=== PATIENT | female | born 2005 ===

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

== ENCOUNTER 2025-04-09 10:11 | Outpatient (REF) | payer MEDICAID, SELFPAY ==
--- OUTSIDE RECORDS SUMMARY | 2025-04-09 10:33 | XMS_ITS | Encounter Summary ---
Author Organization [employer] Address [address] [place] [address] Care Team Providers Care First Aid Instructor Name Role Phone Aleyda Herron MD Primary Care Provider [phone] Reason for Visit * Reason Comments Anxiety Encounter Details Date Type Department Care Team ([facility] st Contact Info) Description 04/09/2025 9:40 AM EDT Office Visit [facility] [address] [place] [address] Aleyda Herron MD [address] [place] [address] CELIA (generalized anxiety disorder) (Primary Dx); Dietary counseling; Exercise counseling; Overweight; Fatigue, unspecified type; Routine screening for STI (sexually transmitted infection) Social History Tobacco Use Types Packs/Day Years Used Date Smoking Tobacco: Never Passive Smoke Exposure: Never Smokeless Tobacco: Never Alcohol Use Standard Drinks/Week Comments Never 0 (1 standard drink = 0.6 oz pur e alcohol) Depression Answer Date Recorded Patient Health Questionnaire-9 Score 6 04/09/2025 Patient Health Questionnaire-9 Score 6 04/09/2025 Last PHQ-9: Questionnaire Data Not on file 0 04/09/2025 Housing Stability Answer Date Recorded What is your housing situation today? I have janusz lopez 09/25/[address] you li ve. Do you have problems with any of the following? Lead [place] or [place]ipes;Mold 09/25/2024 Food Insecurity Answer Date Recorded Within the past 12 months, y ou worried that your food would run out before you got money to buy more: Never True 09/25/2024 Within the past 12 months,th e food you bought just didn't last and you didn't have enough money to get more: Never True 11/2023 Transportation Answer Date Recorded In the past 12 months, has l ack of transportation kept you from medical appts, meetings, work or from getting things needed for daily living? No 09/25/2024 Utilities Answer Date Recorded In the past 12 months, has t he electric, gas, oil or water company threatened to shut off services in your home? No 09/25/2024 Depression Answer Date Recorded Patient Health Questionnaire-2 Score 0 04/09/2025 Internet Access Answer Date Recorded Internet Access Q1 Yes 09/25/2024 Internet Access Q2 Not on file 09/25/2024 Comments No Sex and Gender Information Value Date Recorded Sex Assigned at Female 09/24/2022 10:29 AM EDT Legal Sex Female 10:29 AM EDT Gender Identity Female 09/24/2022 10:29 AM EDT Sexual Orientation Straight 09/24/2022 10 :29 AM EDT documented as of this encounter Last Filed Vital Signs Vital Sign Reading Time Taken Comments Blood Pressure 130/84 04/09/2025 9:13 AM EDT Pulse 74 04/09/2025 9:13 AM EDT Temperature 36.7 ??C (98 ??F) 04/09/2025 9:13 AM EDT Respiratory Rate 18 04/09/2025 9:13 AM EDT Oxygen Saturation - - Inhaled Oxygen Concentration - - Weight 59 kg (130 lb) 04/09/2025 9:13 AM EDT Height 149.9 cm (4' 11 ) 04/09/2025 9:13 AM EDT Body Mass Index 26.26 04/09/2025 9:13 AM EDT documented in this encounter Functional Status * Over the past 2 weeks, how often have you been bothered by any of the following problems? Question Answer Date of Assessment Author Patient Health Questionnaire -2 Score 0 04/09/2025 9:19 AM EDT Estela Herron MD * Little interest or pleasure in doing things Answer Date of Assessment Author Not at all 04/09/2025 9:19 AM EDT Aleyda Estrada MD * Feeling down, depressed, or hopeless Answer Date of Assessment Author Not at all 04/09/2025 9:19 AM Aleyda Fischer MD * Trouble falling or staying asleep, or sleeping too much Answer Date of Assessment Author Nearly every day 04/09/2025 9:19 AM Aleyda Ybarra Cha, MD * Feeling tired or having little energy Answer Date of Assessment Author Not at all 04/09/2025 9:19 AM Aleyda Fischer MD * Poor appetite or overeating Answer Date of Assessment Author Nearly every day 04/09/2025 9:19 AM Aleyda Ybarra Cha, MD * Feeling bad about yourself - or that you are a failure or have let yourself or your family down Answer Date of Assessment Author Not at all 04/09/2025 9:19 AM Aleyda Fischer MD * Trouble concentrating on things, such as reading the newspaper or watching television Answer Date of Assessment Author Not at all 04/09/2025 9:19 AM Aleyda Fischer MD * Moving or speaking so slowly that other people could have noticed? Or the opposite - being so fidgety or restless that you have been moving around a lot more than usual. Answer Date of Assessment Author Not at all 04/09/2025 9:19 AM Aleyda Fischer MD * Thoughts that you would be better off or hurting yourself in some way Answer Date of Assessment Author Not at all 04/09/2025 9:19 AM Aleyda Fischer MD * Patient Health Questionnaire-9 Score Answer Date of Assessment Author 6 04/09/2025 9:19 AM Aleyda Fischer MD * How difficult have these problems made it for you to do your work, take care of things at home, or get along with other people? Answer Date of Assessment Author Not difficult at all 04/09/2025 9:19 AM Aleyda Jones MD * Over the last 2 weeks, how often have you been bothered by any of the following problems? Question Answer Date of Assessment Author Feeling nervous, anxious, or on edge 0 04/09/2025 9:21 AM Estela Jones MD Not being able to stop or control worrying 1 04/09/2025 9:21 AM Estela Jones MD Worrying too much about different things 2 04/09/2025 9:21 AM Estela Jones MD Trouble relaxing 0 04/09/2025 9:21 AM KEMALT Aleyda Thomas MD Being so restless that it is hard to sit still 0 04/09/2025 9:21 AM Estela Jones MD Becoming easily annoyed or irritable 0 04/09/2025 9:21 AM Estela Jones MD Feeling afraid as if somethi ng awful might happen 1 04/09/2025 9:21 AM Estela Jones MD CELIA-7 Total Score 4 04/09/2025 9:21 AM Aleyda Jones MD documented as of this encounter Plan of Treatment Scheduled Orders Name Type Priority Associated Diagnoses Orde r Schedule CBC auto differential Lab Routine Fatigue, unspecified type Ordered: 04/09/2025 Iron And Total Iron Binding Capacity Lab Routine Fatigue, unspecified type Expected: 04/09/2025 (Approximate), Expires: 04/09/2026 Lipid Panel Lab Routine Fatigue, unspecified type Ordered: 04/09/2025 T4, Free Lab Routine Fatigue, unspecified type Ordered: 04/09/2025 TSH Lab Routine Fatigue, unspecified type Ordered: 04/09/2025 Comprehensive Metabolic Panel Lab Routine Fatigue, unspecified type Ordered: 04/09/2025 Chlamydia/N. Gonorrhoeae RNA, TMA, Urine Microbiology Routine Routine screening for STI (sexually transmitted infection) Expected: 04/09/2025 (Approximate), Expires: 04/09/2026 Hepatitis B surface antigen, EIA Lab Routine Routine screening for STI (sexually transmitted infection) Expected: 04/09/2025 (Approximate), Expires: 04/09/2026 Hepatitis C Antibody with Reflex to HCV, RNA, Quantitative, Real-Time PCR Lab Routine Routine screening for STI (sexually transmitted infection) Expected: 04/09/2025 (Approximate), Expires: 04/09/2026 HIV-1/2 Antigen and Antibodies, Fourth Generation, with Reflexes Lab Routine Routine screening for STI (sexually transmitted infection) Expected: 04/09/2025 (Approximate), Expires: 04/09/2026 Syphilis Screen Lab Routine Routine screening for STI (sexually transmitted infection) Expected: 04/09/2025 (Approximate), Expires: 04/09/2026 documented as of this encounter Visit Diagnoses Diagnosis CELIA (generalized anxiety disorder)- Primary Generalized anxiety disorder Dietary counseling Dietary surveillance and counseling Exercise counseling Overweight Fatigue, unspecified type Routine screening for STI (sexually transmitted infection) Screening examination for venereal disease documented in this encounter Additional Health Concerns Assessment Noted Time PHQ-9 Depression Total Score: 6 04/09/20 25 9:19 AM EDT documented as of this encounter Care Teams First Aid Instructor Relationship Specialty Start Date End Date Aleyda Herron MD [address] [place] [address] PCP - General Pediatrics 03/30/16 documented as of this encounter
--- OUTSIDE RECORDS SUMMARY | 2025-04-09 10:33 | XMS_ITS | Encounter Summary ---
Author Organization [employer] Address [address] [place] [address] [address] [place] [address] Care Team Providers Care Quarter Lining Smoother Name Role Phone Aleyda Herron MD Primary Care Provider [phone]- [phone] Encounter Details Date Type Department Care Team ([facility] st Contact Info) Description 11/02/2022 Abstract [facility] [address] [place] [address] Aleyda Herron MD [address] [place] [address] Social History Tobacco Use Types Packs/Day Years Used Date Smoking Tobacco: Never Assessed Comments Unknown Sex and Gender Information Value Date Recorded Sex Assigned at Female 09/24/2022 10:29 AM EDT Legal Sex Female 10:29 AM EDT Gender Identity Female 09/24/2022 10:29 AM EDT Sexual Orientation Straight 09/24/2022 10 :29 AM EDT documented as of this encounter Plan of Treatment Not on file documented as of this encounter Visit Diagnoses Not on filedocumented in this encounter Care Teams Quarter Lining Smoother Relationship Specialty Start Date End Date Aleyda Herron MD [address] [place], [place] [id number] PCP - General Pediatrics 03/30/16 documented as of this encounter
--- OUTSIDE RECORDS SUMMARY | 2025-04-09 10:33 | XMS_ITS | Encounter Summary ---
Author Organization [employer] Address [address] [facility] [address] [place] [address] Care Team Providers Care Api Architect Name Role Phone Aleyda Herron MD Primary Care Provider [phone] Encounter Details Date Type Department Care Team (Latest Contact Info) Description 04/09/2025 Travel Social History Tobacco Use Types Packs/Day Years [...] problems with any of the following? Lead [place] or Pipes;Mold 09/25/2024 Food Insecurity Answer Date [...] AM EDT documented as of this encounter Functional Status * Over the [...] 9:19 AM EDT Aleyda Estrada MD * Trouble falling or staying asleep, or sleeping too much Answer Date of Assessment Author Nearly every day 04/09/2025 9:19 AM EDT Aleyda Espinal Cha, MD * Feeling tired or having little energy Answer Date of Assessment Author Not at all 04/09/2025 9:19 AM KEMALT Aleyda Estrada MD * Poor appetite or overeating Answer Date of Assessment Author Nearly every day 04/09/2025 9:19 AM EDT Aleyda Espinal Cha, MD * Feeling bad about yourself - or that you are a failure or have let yourself or your family down Answer Date of Assessment Author Not at all 04/09/2025 9:19 AM EDT Aleyda Estrada MD * Trouble concentrating on things, such as reading the newspaper or watching television Answer Date of Assessment Author Not at all 04/09/2025 9:19 AM KEMALT Aleyda Estrada MD * Moving or speaking so slowly that other people could have noticed? Or the opposite - being so fidgety or restless that you have been moving around a lot more than usual. Answer Date of Assessment Author Not at all 04/09/2025 9:19 AM EDT Aleyda Espinal Cha, MD * Thoughts that you would be better off or hurting yourself in some way Answer Date of Assessment Author Not at all 04/09/2025 9:19 AM KEMALT Aleyda Estrada MD * Patient Health Questionnaire-9 Score Answer Date of Assessment Author 6 04/09/2025 9:19 AM EDT Aleyda Estrada MD * How difficult have these problems made it for you to do your work, take care of things at home, or get along with other people? Answer Date of Assessment Author Not difficult at all 04/09/2025 9:19 AM KEMALT Aleyda Herron MD * Over the last 2 weeks, [...] MD Trouble relaxing 0 04/09/2025 9:21 AM Aleyda Lyons MD Being so restless that it is [...] Diagnoses Not on filedocumented in this encounter Additional Health Concerns Assessment Noted Time PHQ-9 Depression Total Score: 6 04/09/20 25 9:19 AM EDT documented as of this encounter Care Teams Api Architect Relationship Specialty Start Date End Date Aleyda Herron MD [address] [place] [address] PCP - General Pediatrics 03/30/16 documented as of this encounter
--- OUTSIDE RECORDS SUMMARY | 2025-04-09 10:33 | XMS_ITS | Clinical Summary ---
Author Organization [employer] Address [address] [place] [address] Care Team Providers Care Education Associate Name Role Phone Aleyda Herron MD Primary Care Provider Allergies Active Allergy Reactions Criticality Noted Date Comments Shellfish-Derived Products Hives Low 3 Medications * This document contains information received from the source organization and may not represent a complete record from that organization. triamcinolone (Kenalog) 0.1 % creamIndication s:Intrinsic atopic dermatitis Apply topically twice a day for 1 week 80 g 4 Active famotidine (Pepcid) 20 MG tablet TAKE 1 TABLET BY MOUTH EVERY DAY NEEDED ABDOMINAL DISCOMFORT 4 Active FLUoxetine (PROzac) 10 MG tabletIndicatio ns:Anxiety Take 1 tablet (10 mg) by mouth Once per day. 90 tablet 4 Active Active Problems Problem Noted Date Diagnosed Date Difficulty sleeping 10/02/2024 CELIA (generalized anxiety disorder) 09/01/2024 Vision screen without abnormal findings 07/31/20 24 Atopic dermatitis 11/02/2022 Blurring of visual image 11/02/2022 Dysmenorrhea 10/31/2018 Seasonal allergic rhinitis 08/13/2016 Resolved Problems Problem Noted Date Diagnosed Date Resolved Date Anxiety 11/02/2022 09/01/2024 Mild intermittent asthma 10/31/201804/2024 Overweight child 10/31/2018 11/13/2022 Encounters * This document contains information received from the source organization and may not represent a complete record from that organization. Date Type Department Care Team Description 04/09/2025 9:40 AM EDT Office Visit [facility] [address] [place] [address] Aleyda Herron MD CELIA (generalized anxiety disorder) (Primary Dx); Dietary counseling; Exercise counseling; Overweight; Fatigue, unspecified type; Routine screening for STI (sexually transmitted infection) 04/09/2025 Travel 02/17/2025 Telephone [facility] [address] [place], [place] [id number] Aleyda Herron MD Lab Orders 02/05/2025 Population Health Risk Score [facility] ([facility]) Department [address] [id number] Provider, Population Health Generic from Last 3 Months Immunizations Immunization Administration Dates Next Due DTaP 02/20/2010, 7,10/01/2006,07/24 DTaP, 5 pertussis antigens 02/21/2006 HPV 9-Valent 04/23/2017,04/19/2016 Hep A, ped/adol, 2 dose 07/22/2007,01/20/2007 Hep B, Adolescent or Pediatric 07/24/2006,2005,2005 HiB, unspecified 07/22/2007,07/24/2006 Hib (PRP-T) 02/21/2006 IPV 02/20/2010, 6,07/24/2006,02/21 Influenza injectable quadriv alent IIV4 with preservative 11/13/2022 Influenza injectable quadriv alent preservative free 12/20/2020,09/30/2019,10/31/2018,09/12 Influenza, Injectable, MDCK, preservative free 10/02/2024 MMR 02/20/2010,01/20/2007 Meningococcal MCV4P ACYW-135 04/20/2022,04/23/20 17 Pfizer Covid-19 Vaccine 12+ 10/02/2024,,04/13/2021 Pneumococcal Conjugate PCV 13 07/22/2007 ,10/01/2006,07/24/2006,02/21 Tdap 04/23/2017 Varicella 02/20/2010,01/20/2007 Social History Tobacco Use Types Packs/Day Years Used Date Smoking Tobacco: Never Passive Smoke Exposure: Never Smokeless Tobacco: Never Tobacco Cessation:Counseling Given: Not Answered Alcohol Use Standard Drinks/Week Comments Never 0 [...] problems with any of the following? Lead [place] or Pipes;Mold 09/25/2024 Food Insecurity Answer Date [...] Orientation Straight 09/24/2022 10 :29 AM EDT Last Filed Vital Signs Vital Sign Reading [...] Mass Index 26.26 04/09/2025 9:13 AM EDT Plan of Treatment Health Maintenance Due Date Last Done Comments HIV Screening 2005 Fluoride Varnish 06/08/2020 12/09/2019, 04/25/2017 Meningococcal B Vaccine (1 of 2 - Standard) 2021 Hepatitis C Screening 2023 Chlamydia and Gonorrhea Screening 06/16/2025 06/16/2024, 06/15/2022 Alcohol/Substance Use Screening 07/31/2025 07/31/2024 Family Planning (PISQ) 07/31/2025 07/31/2024 SDOH Screening 09/25/2025 09/25/2024 Depression Screening 04/09/2026 04/09/2025, 04/09/20 25 Tobacco Screening 04/09/2026 04/09/2025 DTaP/Tdap/Td Vaccines (7 - Td or Tdap) 04/23/2027 04/23/2017, 02/20/2010, 07/22/2007, Additional history exists Zoster Vaccines (1 of 2) 2055 RSV Patients and Patients Aged 60 years or older (1 - 1-dose 75+ series) 2080 Hepatitis B Vaccines Completed 07/24/2006, 02/21/2006, 2005 HIB Vaccines Completed 07/22/2007, 06/27, 02/21/2006 Hepatitis A Vaccines Completed 07/22/2007, 01/20/20 07 Pneumococcal Vaccine: Pediatrics (0 to 5 Years) and At-Risk Patients (6 to 49) Years) Completed 07/22/2007, 10/01/2006, 07/24/2006, Additional history exists IPV Vaccines Completed 02/20/2010, 05/2006, 07/24/2006, Additional history exists MMR Vaccines Completed 02/20/2010, 01/20/2007 Varicella Vaccines Completed 02/20/2010, 01/20/2007 HPV Vaccines Completed 04/23/2017, 04/19/2016 Meningococcal Vaccine Completed 04/20/2022, 017 COVID-19 Vaccine Completed 10/02/2024, , 04/13/2021 Influenza Vaccine Completed 10/02/2024, , 12/20/2020, Additional history exists RSV under 20 months Aged Out No longe r eligible based on patient's age to complete this topic Rotavirus Vaccines Aged Out No longer eligible based on patient's age to complete this topic Procedures Procedure Name Priority Date/Time Associated Diagnosis Comments CHLAMYDIA/N. GONORRHOEAE RNA, TMA, UROGENITAL Routine 06/16/2024 2:23 PM EDT Dysuria TOPICAL APPLICATION OF FLUORIDE VARNISH Routine 12/09/2019 12:00 AM EST from Last 3 Months or Most Recently Relevant to Health Maintenance Results * Chlamydia/N. Gonorrhoeae RNA, TMA, Urogenitial (06/16/2024 2:23 PM EDT) CT PCR NOT DETECTED Not Detect. [facility] Comment:A not detected test result does not exclude the possibilityof infection because test results can be affected byimproper specimen collection, concurrent antibiotic therapy,or the number of organisms in the specimen which may bebelow the sensitivity of the test. As with many diagnostictests, results from the Xpert CT/NG assay should beinterpreted in conjunction with other laboratory andclinical data available to the clinician.Xpert CT/NG performance has not been evaluated in patientsless than 14 years of age. The assay should not be used forthe evaluationof suspected sexual abuse or for other medico-legalindications. Additional testing is recommended in anycircumstance when false positive or false negative resultscould lead to adverse medical, social or psychologicalconsequences. NG PCR NOT DETECTED Not Detect. [facility] Comment:A not detected test result does not exclude the possibilityof infection because test results can be affected byimproper specimen collection, concurrent antibiotic therapy,or the number of organisms in the specimen which may bebelow the sensitivity of the test. As with many diagnostictests, results from the Xpert CT/NG assay should beinterpreted in conjunction with other laboratory andclinical data available to the clinician.Xpert CT/NG performance has not been evaluated in patientsless than 14 years of age. The assay should not be used forthe evaluationof suspected sexual abuse or for other medico-legalindications. Additional testing is recommended in anycircumstance when false positive or false negative resultscould lead to adverse medical, social or psychologicalconsequences. Urine (Urine, Random) 06/16/2024 2:23 PM EDT 06/16/2024 5:34 PM EDT Narrative [facility] - 06/17/2024 12:12 PM EDT Urine us Alexandria Bello PNP LAB MICROBIOLOGY - GENERAL O RDERABLES Final Result [facility] [address] [place] [address] [phone] from Last 3 Months or Most Recently Relevant to Health Maintenance Insurance [employer] Care Teams Education Associate Relationship Specialty Start Date End Date Aleyda Herron MD [address] [place] [address] PCP - General Pediatrics 03/30/16
[2025-04-09 11:39] LABS: MANUAL DIFF FLAG NO
[2025-04-09 11:47] LABS: HBsAGNum1 0.34 S/CO (0.00-0.99); HIV AB/AG Nonreactive (Nonreactive); HIV Num 1 0.06 S/CO (0.00-0.99); Hepatitis B Surface Antigen Negative (Negative); Syphilis Screen Nonreactive (Nonreactive); ~HepC Num1 0.13 S/CO (0.00-0.79); ~Hepatitis C Antibody Nonreactive (Nonreactive)
[2025-04-09 11:49] LABS: Anion Gap 9 (12-20); Blood Urea Nitrogen 9 mg/dL (9-16); Carbon Dioxide 23 mmol/L (22-29); Chloride 111 mmol/L (96-108); Estimated Glomerular Filt Rate > 60; Potassium 3.6 mmol/L (3.3-5.1); Sodium 139 mmol/L (135-145)
[2025-04-09 11:50] LABS: Alanine Aminotransferase 36 U/L (0-31); Albumin Level 4.4 g/dL (3.5-5.0); Alkaline Phosphatase 78 U/L (39-117); Aspartate Amino Transferase 24 U/L (5-31); Bilirubin Total 0.5 mg/dL (0.0-1.0); Calcium 9.4 mg/dL (8.4-10.2); Cholesterol 130 mg/dL (<200); Free T4 (Free Thyroxine) 1.05 ng/dL (0.71-1.85); Glucose Random 89 mg/dL (60-115); HDL Cholesterol 42 mg/dL (>40); Iron 63 mcg/dL (30-160); LDL Cholesterol Calculated 73 mg/dL (<100); Percent Iron Saturation 20 % (15-50); Thyroid Stimulating Hormone 1.41 uIU/mL (0.32-4.0); Total Iron Binding Capacity 323 mcg/dL (228-428); Total Protein 7.8 g/dL (6.5-8.0); Triglycerides 78 mg/dL (<150); Unsaturated Iron Binding 260 ug/dL
[2025-04-09 11:52] LABS: Basophils Absolute Auto 0.1 X10*3/uL (0.0-0.2); Basophils Percent Auto 0.5 % (0-2); Eosinophils Absolute Auto 0.2 X10*3/uL (0.0-0.4); Hematocrit 37.7 % (37.0-47.0); Hemoglobin 13.2 g/dl (12.0-16.0); Imm Gran Abs Auto 0.03 X10*3/uL (0.00-0.03); Imm Gran Pct Auto 0.3 % (0.0-0.4); Lymphocytes Absolute Auto 2.6 X10*3/uL (1.2-4.9); Lymphocytes Percent Auto 28.1 % (20-40); Mean Corpuscular Hemoglobin 30.6 pg (27.0-33.0); Mean Corpuscular Volume 87.3 fL (80.0-98.0); Mean Platelet Volume 10.6 fL (9.4-12.3); Monocytes Absolute Auto 0.7 X10*3/uL (0.1-1.2); Monocytes Percent Auto 7.8 % (2-11); Neutrophils Absolute Auto 5.6 x10*3/uL (2.0-8.3); Neutrophils Percent Auto 61.3 % (45-73); Platelet Count 335 X10*3/uL (160-400); Red Blood Count 4.32 X10*6/uL (4.20-5.50); Red Cell Distribution Width 12.4 % (11.0-16.0); White Blood Count 9.2 X10*3/uL (4.8-10.8)
[2025-04-10 15:35] LABS: CT PCR NOT DETECTED (Not Detect.); NG PCR NOT DETECTED (Not Detect.)
== END 2025-04-09 10:12 | disposition home or self-care (01) ==
LOC: HO.HHCL 10:11
PROVIDERS: Visit Provider Pediatrics
DX: Z11.3 Encounter for screening for infections with a predominantly sexual mode of transmission (principal); Z11.4 Encounter for screening for human immunodeficiency virus [HIV]; R30.0 Dysuria; R53.83 Other fatigue
CPT/HCPCS: 36415; 80053; 80061; 83540; 84439; 84443; 85025; 86780; 86803; 87086; 87340; 87389; 87491; 87591

== ENCOUNTER 2025-05-06 19:14 | Emergency (ER) | payer MEDICAID, SELFPAY ==
[2025-05-06 19:19] VITALS: BP 127/84; PULSE 93; RESP 17; TEMP 36.9; O2SAT 98; BMI 24.6
--- NOTE | 2025-05-06 19:20 | ED_ITS ---
HPI - General Adult General Chief complaint: Upper Respiratory Symptoms Stated complaint: sore throat,sob asthma Time Seen by Provider: 05/06/25 19:36 Source: patient Mode of arrival: ambulatory Limitations: no limitations History of Present Illness ED Provider: Dr. Jaxon Yanes HPI narrative: 19-year-old female with a history of asthma who presents emergency department for evaluation of 2 days of sore throat, nausea, vomiting, body aches, nasal congestion, nonproductive cough, fatigue. The patient's sister is sick with COVID. The patient states she has been vaccinated for COVID but he has never had a COVID infection. Patient has not taken any medications for her symptoms. Related Data Previous Rx's ?Medication ?Instructions ?Recorded ondansetron 4 mg disintegrating 4 mg PO Q8H 3 days #9 tabs 02/04/22 tablet cefuroxime axetil 250 mg tablet 250 mg PO BID #14 tabs 06/14/24 fluconazole 150 mg tablet 150 mg PO DAILY 1 dose #1 tab 06/19/24 nitrofurantoin 100 mg PO Q12H 5 days #10 caps 07/09/24 monohydrate/macrocrystals 100 mg capsule (Macrobid) cefuroxime axetil 250 mg tablet 250 mg PO BID 7 days #14 tabs 08/20/24 famotidine 20 mg tablet (Pepcid) 20 mg PO DAILY PRN abdominal 08/20/24 discomfort #30 tabs ondansetron 4 mg disintegrating 4 mg PO Q8H PRN nausea and 08/20/24 tablet vomiting #20 tabs acetaminophen 500 mg tablet 1,000 mg (2 x 500 mg) PO Q6H PRN 05/06/25 (Tylenol Extra Strength) fever or pain #20 tabs ibuprofen 400 mg tablet 400 mg PO TID PRN fever or pain 05/06/25 #30 tabs ondansetron 4 mg disintegrating 4 mg PO Q6-8H PRN nausea and 05/06/25 tablet vomiting #14 tabs Allergies Allergy/AdvReac Type Severity Reaction Status Date / Time No Known Allergies Allergy Verified 05/06/25 19:21 [No Known Allergies*] Review of Systems Review of Systems: Yes all other systems are reviewed and are negative [facility] Past Medical History [facility] Narrative: Social history: She denies tobacco, alcohol and drug use. Medical History No known health problems Social History Social History Alcohol intake: never Patient Tobacco Use Status: Never used Tobacco Advance Directives: No Advance Directives Information Provided: No Do you have a plan to hurt others: No Plan Physical Exam ED Vital Signs: Vital Signs - 24 hr 05/06/25 19:19 Temperature 98.4 F Pulse Rate 93 Respiratory Rate 17 Blood Pressure 127/84 Pulse Oximetry 98 Oxygen Delivery Method Room Air BMI result Body Mass Index 24.6 Vital signs were normal Exam: General: Awake, alert in no distress Head: Normocephalic, atraumatic EENT: PERRL, Lids normal, sclera normal, conjunctiva normal, nose normal , ears normal, throat without erythema or exudates Neck: Supple, no adenopathy Lung: breath sounds symmetric, no wheezing, rales or rhonchi Chest: symmetric movement, nontender Heart: regular rate and rhythm, normal S1, S2 no murmurs or rubs Abdomen: soft, non-tender, nondistended, normal bowel sounds Back: no vertebral tenderness, no CVAT Extremities: no deformities, moves all extremities symmetrically Neuro: Awake, alert, oriented, normal speech, cranial nerves intact, moves all extremities symmetrically Psych: Pleasant, cooperative Course Course Course Narrative: RME, this is a rapid medical exam performed by Albert Mclean please refer to primary provider for complete H&P- 19 year old female presents for evaluation fever, cough, sore throat. Plan for viral swabs Medications Administered Discontinued Medications Generic Name Dose Route Start Last Admin Trade Name Freq PRN Reason Stop Dose Admin Ibuprofen 400 mg 05/06/25 19:48 05/06/25 19:53 Ibuprofen 400 Mg Tablet PO 05/06/25 19:49 400 mg ONCE STA Administration Ondansetron HCl 4 mg 05/06/25 19:48 05/06/25 19:53 Ondansetron Odt 4 Mg Tab.Rapdis TRANSLINGU 05/06/25 19:49 4 mg ONCE STA Administration Medical Decision Making Medical Decision Making [facility] Narrative: 19-year-old female with a history of asthma who presents emergency department for evaluation of 2 days of sore throat, nausea, vomiting, body aches, nasal congestion, nonproductive cough, fatigue. The patient's sister is sick with COVID. The patient states she has been vaccinated for COVID but he has never had a COVID infection. Patient has not taken any medications for her symptoms. Vital signs were normal. Physical examination was unremarkable Differential diagnosis: ?Includes but is not limited to COVID-19, influenza, RSV, viral syndrome, viral pharyngitis, streptococcal pharyngitis Course: My independent interpretation patient's laboratory evaluation is as follows: COVID-19, influenza and RSV were negative. Patient's presentation is consistent with a viral syndrome. She was given ibuprofen 400 mg orally and Zofran 4 mg ODT. Patient was prescribed Tylenol, ibuprofen and Zofran ODT. She was advised to stay on a OTILIO diet. She was given printed and verbal instructions and discharged home. Admission/Observation Consideration of admission/observation: Escalation of care including admission/observation considered (No) Lab Data MDM Lab Attestation statement: I reviewed the patient's lab results. Labs: Lab Results 05/06/25 Range/Units 19:31 Influenza Type A (PCR) NEGATIVE (Negative) Influenza Type B (PCR) NEGATIVE (Negative) RSV RNA Qual (PCR) NEGATIVE (Negative) SARS-CoV-2 RNA (RT-PCR) NEGATIVE (Negative) S. pyogenes GrpA ARIC Negative (Negative) Prescription Management I considered prescription management with: Pain Medication (Tylenol and ibuprofen) and Other (Antiemetic: Zofran ODT) Discharge Plan Discharge Clinical Impression: Viral syndrome Patient Disposition: Home, Self-Care Instructions: Viral Syndrome (ED) Additional Instructions: Your COVID-19, influenza and RSV tests were negative. Your symptoms are consistent with a viral infection. Take ibuprofen 200 mg pills, 2 pills every 6 hours as needed for pain or fever. Take Tylenol (acetaminophen) 500 mg pills, 2 pills every 6 hours as needed for pain or fever. Take Zofran ODT 4 mg pills, 1 pill dissolved in your mouth every 8 hours as needed for nausea and vomiting. For the next 24 hours, stay on a OTILIO diet (bananas, rice, applesauce, tea and toast). Follow-up with your doctor in 2 days. Please return to the emergency department if your symptoms get worse or if you develop any symptoms that are concerning to you. Prescriptions: New acetaminophen [Tylenol Extra Strength] 500 mg tablet 1,000 mg PO Q6H PRN (Reason: fever or pain) Qty: 20 0RF ibuprofen 400 mg tablet 400 mg PO TID PRN (Reason: fever or pain) Qty: 30 0RF ondansetron 4 mg tablet,disintegrating 4 mg PO Q6-8H PRN (Reason: nausea and vomiting) Qty: 14 0RF No Action ondansetron 4 mg tablet,disintegrating 4 mg PO Q8H 3 Days Qty: 9 0RF cefuroxime axetil 250 mg tablet 250 mg PO BID Qty: 14 0RF fluconazole 150 mg tablet 150 mg PO DAILY Qty: 1 0RF Rx Instructions: administer on day 1 of therapy nitrofurantoin monohyd/m-cryst [Macrobid] 100 mg capsule 100 mg PO Q12H 5 Days Qty: 10 0RF Rx Instructions: must administer with a meal/food famotidine [Pepcid] 20 mg tablet 20 mg PO DAILY PRN (Reason: abdominal discomfort) Qty: 30 0RF ondansetron 4 mg tablet,disintegrating 4 mg PO Q8H PRN (Reason: nausea and vomiting) Qty: 20 0RF cefuroxime axetil 250 mg tablet 250 mg PO BID 7 Days Qty: 14 0RF Print Language: Hebrew
[2025-05-06 19:49] LABS: IDNOW Serial# 6674DD1D
[2025-05-06 19:50] LABS: Strep A Nucleic Acid Negative (Negative)
[2025-05-06] MEDS: Ibuprofen 400 MG TABLET PO (19:53)
[2025-05-06] MEDS: Ondansetron ODT 4 MG TAB.RAPDIS TRANSLINGU (19:53)
--- NOTE | 2025-05-06 19:56 | PC.NURSE ---
pt medicated per mar at this time tolerated well, awaiting results
[2025-05-06 20:16] LABS: Influenza A PCR NEGATIVE (Negative); Influenza B PCR NEGATIVE (Negative); Resp Syncy Virus RNA Qual PCR NEGATIVE (Negative); SARS COV2 PCR INHOUSE NEGATIVE (Negative)
[2025-05-06 20:43] VITALS: BP 119/71; PULSE 78; RESP 17; TEMP 37.2; O2SAT 100
== END 2025-05-06 20:43 | disposition home or self-care (01) ==
PROVIDERS: Physician Assistant; Emergency Provider Emergency Medicine Emergency Medical Services
DX: B34.9 Viral infection, unspecified (principal); R06.02 Shortness of breath; J02.9 Acute pharyngitis, unspecified; Z03.818 Encounter for observation for suspected exposure to other biological agents ruled out
CPT/HCPCS: 0241U; 87651; 99283

== ENCOUNTER 2025-05-11 00:26 | Emergency (ER) | payer MEDICAID, SELFPAY ==
[2025-05-11 00:32] VITALS: BP 115/80; PULSE 83; RESP 18; TEMP 36.8; O2SAT 99; BMI 24.5
[2025-05-11 00:47] LABS: Appearance Urine Clear; Color Urine Yellow; Glucose Urine UA Negative (Negative); Leukocyte Esterase Urine Moderate (2+) (Negative); Nitrite Urine Negative (Negative); Specific Gravity - Urine >= 1.030 (1.005-1.025); UMIC TRIGGER UACC YES; Urine Blood Trace (Negative); Urine Ketones Trace mg/dL (Negative); Urine Protein Trace mg/dL (Neg-Trace)
[2025-05-11 00:52] LABS: Bacteria Urine 2+ (None Seen); Hyaline Casts Urine 0-2 /LPF (0-2); RBC Urine 0-2 /HPF (0-2); UACC Culture Trigger YES; WBC Urine 21-50 /HPF (0-5)
--- NOTE | 2025-05-11 02:46 | ED.FEMALEGU ---
HPI - Female Genitourinary General Chief complaint: Urogenital-Female Stated complaint: UTI Time Seen by Provider: 05/11/25 01:52 Source: patient Limitations: no limitations History of Present Illness ED Provider: Luz Campa PA-C HPI Narrative: 19-year-old female presents with dysuria x1 day. Denies vaginal discharge, risk for STD, abdominal pain, back pain nausea vomiting or fever. Related Data Previous Rx's ?Medication ?Instructions ?Recorded ondansetron 4 mg disintegrating 4 mg PO Q8H 3 days #9 tabs 02/04/22 tablet cefuroxime axetil 250 mg tablet 250 mg PO BID #14 tabs 06/14/24 fluconazole 150 mg tablet 150 mg PO DAILY 1 dose #1 tab 06/19/24 nitrofurantoin 100 mg PO Q12H 5 days #10 caps 07/09/24 monohydrate/macrocrystals 100 mg capsule (Macrobid) cefuroxime axetil 250 mg tablet 250 mg PO BID 7 days #14 tabs 08/20/24 famotidine 20 mg tablet (Pepcid) 20 mg PO DAILY PRN abdominal 08/20/24 discomfort #30 tabs ondansetron 4 mg disintegrating 4 mg PO Q8H PRN nausea and 08/20/24 tablet vomiting #20 tabs acetaminophen 500 mg tablet 1,000 mg (2 x 500 mg) PO Q6H PRN 05/06/25 (Tylenol Extra Strength) fever or pain #20 tabs ibuprofen 400 mg tablet 400 mg PO TID PRN fever or pain 05/06/25 #30 tabs ondansetron 4 mg disintegrating 4 mg PO Q6-8H PRN nausea and 05/06/25 tablet vomiting #14 tabs cephalexin 500 mg capsule 500 mg PO Q12H #13 caps 05/11/25 fluconazole 100 mg tablet 100 mg PO ONCE vaginal yeast 05/11/25 (Diflucan) infection #1 tab phenazopyridine 200 mg tablet 200 mg PO TID PRN pain #10 tabs 05/11/25 (Pyridium) Allergies Allergy/AdvReac Type Severity Reaction Status Date / Time No Known Allergies Allergy Verified 05/11/25 00:35 [No Known Allergies*] Review of Systems Review of Systems: Yes all other systems are reviewed and are negative Constitutional: Constitutional: Denies fatigue and Denies fever(s) Cardiovascular: Cardiovascular: Denies chest pain and Denies dyspnea Respiratory: Respiratory: Denies cough and Denies dyspnea Gastrointestinal: Gastrointestinal: Denies abdominal pain, Denies nausea and Denies vomiting Genitourinary: Genitourinary: Denies dysuria, Denies pelvic pain and Denies vaginal discharge Endocrine: Endocrine: Denies fatigue [facility] Past Medical History Attestation statement: The following information was validated with the patient. Medical History No known health problems Social History Social History Alcohol intake: never Patient Tobacco Use Status: Never used Tobacco Advance Directives: No Advance Directives Information Provided: Yes Physical Exam Vital Signs: Vital Signs: Last Vital Signs Temp 98.3 F 05/11/25 00:32 Pulse 83 05/11/25 00:32 Resp 18 05/11/25 00:32 BP 115/80 05/11/25 00:32 Pulse Ox 99 05/11/25 00:32 O2 Del Method Room Air 05/11/25 00:32 BMI result Body Mass Index 24.5 Const: Other: Alert well-appearing Orientation/consciousness: patient oriented x3 Resp: Effort & Inspection: normal respiratory effort Cardio: Other: Normal peripheral perfusion Skin: Other: Warm dry no rash Neuro: General: patient oriented x3, gait normal, no focal motor deficits and CN's II-XI intact bilaterally Psych: Other: Cooperative Medical Decision Making Medical Decision Making MDM Narrative: 19-year-old female presents with dysuria x1 day. Denies vaginal discharge, risk for STD, abdominal pain, back pain nausea vomiting or fever. No chronic issues History: Per patient I have considered the following differential diagnoses: UTI, renal colic, pyelonephritis, STD, vaginitis Plan: Patient here with dysuria, urine obtained, appears infected, we will treat. She has no risk factors for STD she has no vaginal discharge, she is not sexually active, pelvic exam not warranted. She has no systemic symptoms to suggest renal colic or pyelonephritis. I have independently reviewed the following tests: Labs: Urine infected Lab Data Labs: Lab Results 05/11/25 Range/Units 00:40 Urine Color Yellow Urine Appearance Clear Urine pH 7.0 (5.0-9.0) Ur Specific [place] >= 1.030 H (1.005-1.025) Urine Protein Trace (Neg-Trace) mg/dL Urine Glucose (UA) Negative (Negative) mg/dL Urine Ketones Trace (Negative) mg/dL Urine Blood Trace H (Negative) Urine Nitrite Negative (Negative) Ur Leukocyte Esterase Moderate (2+) H (Negative) Urine RBC 0-2 (0-2) /HPF Urine WBC 21-50 H (0-5) /HPF Ur Squamous Epith Cells 6-10 (0-2) /HPF Urine Bacteria 2+ (None Seen) Hyaline Casts 0-2 (0-2) /LPF Discharge Plan Discharge Clinical Impression: Urinary tract infection Patient Disposition: Home, Self-Care Instructions: Urinary Tract Infection in Women (ED) Additional Instructions: You are being treated for urinary tract infection. See home care instructions. Take the cephalexin as directed this is an antibiotic, complete the course of antibiotics. Use the Pyridium as needed for urinary pain, your urine we will turn bright orange, this is normal, drink plenty of fluids. I am giving you a 1 time dose of Diflucan, if you develop a vaginal yeast infection. Follow up with your primary care provider as needed. Prescriptions: New phenazopyridine [Pyridium] 200 mg tablet 200 mg PO TID PRN (Reason: pain) Qty: 10 0RF cephalexin 500 mg capsule 500 mg PO Q12H Qty: 13 0RF fluconazole [Diflucan] 100 mg tablet 100 mg PO ONCE Qty: 1 0RF No Action ondansetron 4 mg tablet,disintegrating 4 mg PO Q8H 3 Days Qty: 9 0RF cefuroxime axetil 250 mg tablet 250 mg PO BID Qty: 14 0RF fluconazole 150 mg tablet 150 mg PO DAILY Qty: 1 0RF Rx Instructions: administer on day 1 of therapy nitrofurantoin monohyd/m-cryst [Macrobid] 100 mg capsule 100 mg PO Q12H 5 Days Qty: 10 0RF Rx Instructions: must administer with a meal/food acetaminophen [Tylenol Extra Strength] 500 mg tablet 1,000 mg PO Q6H PRN (Reason: fever or pain) Qty: 20 0RF ibuprofen 400 mg tablet 400 mg PO TID PRN (Reason: fever or pain) Qty: 30 0RF ondansetron 4 mg tablet,disintegrating 4 mg PO Q6-8H PRN (Reason: nausea and vomiting) Qty: 14 0RF famotidine [Pepcid] 20 mg tablet 20 mg PO DAILY PRN (Reason: abdominal discomfort) Qty: 30 0RF ondansetron 4 mg tablet,disintegrating 4 mg PO Q8H PRN (Reason: nausea and vomiting) Qty: 20 0RF cefuroxime axetil 250 mg tablet 250 mg PO BID 7 Days Qty: 14 0RF Print Language: Frisian
[2025-05-11 02:47] VITALS: BP 111/75; PULSE 64; RESP 16; TEMP 36.3; O2SAT 99
[2025-05-11] MEDS: cephALEXin 500 MG CAPSULE PO (02:50)
[2025-05-11] MEDS: Phenazopyridine HCL 200 MG TABLET PO (02:50)
[2025-05-11 02:57] VITALS: BP 111/75; PULSE 64; RESP 16; TEMP 36.3; O2SAT 99
== END 2025-05-11 02:57 | disposition home or self-care (01) ==
PROVIDERS: Emergency Provider Emergency Medicine
DX: N39.0 Urinary tract infection, site not specified (principal)
CPT/HCPCS: 81001; 87086; 99283; 99284

== ENCOUNTER 2025-05-27 00:11 | Emergency (ER) | payer MEDICAID, SELFPAY ==
[2025-05-27 00:14] VITALS: BP 116/78; PULSE 91; RESP 17; TEMP 37.4; O2SAT 97; BMI 22.7
--- NOTE | 2025-05-27 00:38 | ED_ITS ---
HPI - Female Genitourinary General Chief complaint: Urogenital-Female Stated complaint: uti? Time Seen by Provider: 05/27/25 00:20 Source: patient and old records reviewed Mode of arrival: ambulatory Limitations: no limitations History of Present Illness ED Provider: JUWAN MURRY Narrative: 19 yo female with recurrent urinary symptoms and infection s/p recent therapy for negative urine culture 05/11 given cephalexin she comes in today with c/o burning and itching near her urethra. She states she has had this for 4 years. She has never had [employer] exam, she states she is not sexually active. She denies blood in urine. She states it is always itchy near where her urine comes out. MD elicited complaint: other (urethral itching and burning with urination) Pertinent past history: recurrent UTIs (though all neg cultures) Onset (ago): year(s) Location of symptoms: urethra Severity: moderate Quality of pain: burning Consistency: intermittent Vaginal discharge: none Vaginal bleeding: none Urinary symptoms: Dysuria Exacerbating factors: urination Relieving factors: none Associated symptoms: denies other symptoms Related Data Previous Rx's ?Medication ?Instructions ?Recorded ondansetron 4 mg disintegrating 4 mg PO Q8H 3 days #9 tabs 02/04/22 tablet cefuroxime axetil 250 mg tablet 250 mg PO BID #14 tabs 06/14/24 fluconazole 150 mg tablet 150 mg PO DAILY 1 dose #1 ta b 06/19/24 nitrofurantoin 100 mg PO Q12H 5 days #10 ca ps 07/09/24 monohydrate/macrocrystals 100 mg capsule (Macrobid) cefuroxime axetil 250 mg tablet 250 mg PO BID 7 days # 14 tabs 08/20/24 famotidine 20 mg tablet (Pepcid) 20 mg PO DAILY PRN ab dominal 08/20/24 discomfort #30 tabs ondansetron 4 mg disintegrating 4 mg PO Q8H PRN nausea and 08/20/24 tablet vomiting #20 tabs acetaminophen 500 mg tablet 1,000 mg (2 x 500 mg) PO Q 6H PRN 05/06/25 (Tylenol Extra Strength) fever or pain #20 tabs ibuprofen 400 mg tablet 400 mg PO TID PRN fever or p ain 05/06/25 #30 tabs ondansetron 4 mg disintegrating 4 mg PO Q6-8H PRN naus ea and 05/06/25 tablet vomiting #14 tabs cephalexin 500 mg capsule 500 mg PO Q12H #13 caps 04/25 06/18 fluconazole 100 mg tablet 100 mg PO ONCE vaginal yeast 05/11/25 (Diflucan) infection #1 tab phenazopyridine 200 mg tablet 200 mg PO TID PRN pain # 10 tabs 05/11/25 (Pyridium) fluconazole 150 mg tablet 150 mg PO ONCE 1 dose #1 tab 05/27/25 Allergies Allergy/AdvReac Type Severity Reaction Status Date / Time No Known Allergies (No Known Allergy Verified 05/27/25 00:25 Allergies*) Review of Systems Review of Systems: Constitutional : No Fever, No Chills, No Fatigue ENT/Mouth : No sore throat, No Rhinorrhea Cardiovascular : No Chest Pain, No SOB, No Dyspnea on Exertion Respiratory : No Cough, No Sputum Gastrointestinal : No Nausea, No Vomiting, No Diarrhea, No abdominal Pain Genitourinary :pos Dysuria, No Urinary Frequency, No Hematuria, Musculoskeletal : No joint pain, No Myalgias, No Joint Swelling Skin : No Skin Lesions, No rash Neuro : No Weakness, No Numbness, No Dizziness, no Headache All other systems reviewed and are negative [facility] Past Medical History Attestation statement: The following information was validated with the patient. Source: old records reviewed Medical History No known health problems Social History Social History Alcohol intake: never Patient Tobacco Use Status: Never used Tobacco Advance Directives: No Advance Directives Information Provided: Yes Do you have a plan to hurt others: No Plan Physical Exam Vital Signs: Vital Signs: Last Vital Signs Temp 99.3 F 05/27/25 00:14 Pulse 91 05/27/25 00:14 Resp 17 05/27/25 00:14 BP 116/78 05/27/25 00:14 Pulse Ox 97 05/27/25 00:14 O2 Del Method Room Air 05/27/25 00:14 BMI result Body Mass Index 22.7 Appearance: Alert. Oriented X3. No acute distress. Eyes: Pupils equal, round and reactive to light. ENT: Pharynx normal. Neck: Normal inspection. Neck supple. CVS: Normal heart rate and rhythm. Pulses normal. Respiratory: No respiratory distress. Breath sounds normal. Abdomen: Soft and nontender. : no excoriations or ulcers, she has thick white discharge and itchiness is near her clitoral brown other than thick white discharge no other issues noted. Skin: Skin warm and dry. Normal skin color. Normal skin turgor. Extremities: No lower extremity edema. No calf ttp Neuro: Oriented X 3. No motor deficit. No sensory deficit. CN2-12 intact Medications Administered Discontinued Medications Generic Name Dose Route Start Last Admin Trade Name Venus PRN Reason Stop Dose Admin Fluconazole 150 mg 05/27/25 01:07 05/27/25 01:22 Fluconazole 150 Mg Tablet PO 05/27/25 01:08 150 mg ONCE ONE Administration Medical Decision Making Medical Decision Making [facility] Narrative: 19 yo female with recurrent urinary symptoms and infection that is always culture negative based off her symptoms and exam I suspect she has a yeast infection will obtain UA/UPT and vaginal swabs. She has never had a pap or OBGYN exam which I told her she needs to follow up and do. Differential Diagnosis Differential Diagnoses: The differential diagnosis associated with the presentation includes yeast infection, vaginitis Admission/Observation Consideration of admission/observation: Escalation of care including admission/observation considered can follow up with an OBGYN Lab Data [facility] Lab Attestation statement: I reviewed the patient's lab results. Labs: Lab Results 05/27/25 Range/Units 01:18 Urine Color Yellow Urine Appearance Clear Urine pH 7.0 (5.0-9.0) Ur Specific [place] 1.025 (1.005-1.025) Urine Protein Negative (Neg-Trace) mg/dL Urine Glucose (UA) Negative (Negative) mg/dL Urine Ketones Negative (Negative) mg/dL Urine Blood Negative (Negative) Urine Nitrite Negative (Negative) Ur Leukocyte Esterase Moderate (2+) H (Negative) Urine RBC 0-2 (0-2) /HPF Urine WBC 11-20 H (0-5) /HPF Ur Squamous Epith Cells 3-5 (0-2) /HPF Urine Bacteria Trace (None Seen) Hyaline Casts 0-2 (0-2) /LPF Urine Test NEGATIVE (NEGATIVE) External Record Review External record reviewed: Outpatient record and Prior outpatient labs Prescription Management I considered prescription management with: Other Discharge Plan Discharge Clinical Impression: Vaginitis Qualifiers: Chronicity: acute Qualified Code(s): N76.0 - Acute vaginitis Patient Disposition: Home, Self-Care Instructions: Yeast Infection (ED) Additional Instructions: You were found to have a yeast infection today. Your next dose of yeast medications is Saturday. You want to make sure your are cleaning with warm water in the shower. Never use douche. You should be following up with an OBGYN for routine [employer] care. some lab tests are pending we will call you with results if positive in the next 24-48 hours [facility] [address] [phone] [facility] [address] [phone] [facility] [place] [phone] Prescriptions: New fluconazole 150 mg tablet 150 mg PO ONCE Qty: 1 0RF Rx Instructions: next dose on Wednesday 05/30 No Action ondansetron 4 mg tablet,disintegrating 4 mg PO Q8H 3 Days Qty: 9 0RF cefuroxime axetil 250 mg tablet 250 mg PO BID Qty: 14 0RF fluconazole 150 mg tablet 150 mg PO DAILY Qty: 1 0RF Rx Instructions: administer on day 1 of therapy nitrofurantoin monohyd/m-cryst [Macrobid] 100 mg capsule 100 mg PO Q12H 5 Days Qty: 10 0RF Rx Instructions: must administer with a meal/food acetaminophen [Tylenol Extra Strength] 500 mg tablet 1,000 mg PO Q6H PRN (Reason: fever or pain) Qty: 20 0RF ibuprofen 400 mg tablet 400 mg PO TID PRN (Reason: fever or pain) Qty: 30 0RF ondansetron 4 mg tablet,disintegrating 4 mg PO Q6-8H PRN (Reason: nausea and vomiting) Qty: 14 0RF phenazopyridine [Pyridium] 200 mg tablet 200 mg PO TID PRN (Reason: pain) Qty: 10 0RF cephalexin 500 mg capsule 500 mg PO Q12H Qty: 13 0RF fluconazole [Diflucan] 100 mg tablet 100 mg PO ONCE Qty: 1 0RF famotidine [Pepcid] 20 mg tablet 20 mg PO DAILY PRN (Reason: abdominal discomfort) Qty: 30 0RF ondansetron 4 mg tablet,disintegrating 4 mg PO Q8H PRN (Reason: nausea and vomiting) Qty: 20 0RF cefuroxime axetil 250 mg tablet 250 mg PO BID 7 Days Qty: 14 0RF Print Language: Kinyarwanda
[2025-05-27 01:26] LABS: Appearance Urine Clear; Glucose Urine UA Negative (Negative); PH 7.0 (5.0-9.0); Specific Gravity - Urine 1.025 (1.005-1.025); UMIC TRIGGER UACC YES
[2025-05-27 01:28] LABS: UPreg QC Valid YES
[2025-05-27 01:43] LABS: UACC Culture Trigger YES
[2025-05-27 02:21] VITALS: BP 121/79; PULSE 86; RESP 16; TEMP 36.6; O2SAT 100
[2025-05-27 10:45] LABS: Bacterial Vaginosis PCR NEGATIVE (Negative); Candida Group PCR NOT DETECTED (Not Detect); Candida glab krusei PCR NOT DETECTED (Not Detect); Trichomonas vaginalis PCR NOT DETECTED (Not Detect)
[2025-05-27 11:17] LABS: CT PCR NOT DETECTED (Not Detect.); NG PCR NOT DETECTED (Not Detect.)
== END 2025-05-27 02:22 | disposition home or self-care (01) ==
PROVIDERS: Emergency Provider Emergency Medicine
DX: N76.0 Acute vaginitis (principal); R30.0 Dysuria; Z87.440 Personal history of urinary (tract) infections
CPT/HCPCS: 81001; 81025; 81515; 87086; 87491; 87591; 99283

== ENCOUNTER 2025-05-31 15:19 | Emergency (ER) | payer MEDICAID, SELFPAY ==
[2025-05-31 15:35] VITALS: BP 129/55; PULSE 85; RESP 16; TEMP 36.7; O2SAT 97; BMI 24.7
--- NOTE | 2025-05-31 15:38 | ED_ITS ---
HPI - General Adult General Chief complaint: Headache Stated complaint: Wants test Time Seen by Provider: 05/31/25 21:54 Source: patient Mode of arrival: ambulatory Limitations: language barrier History of Present Illness ED Provider: Dr. Rakel Frank HPI narrative: 19-year-old female with no significant past medical history presenting with request for test after having unprotected sex 3 days ago. States she had intercourse and missed her period today. Reports that she gets her periods like clockwork and should have started it today. No other potential unprotected sex that could have led to or STI. She denies any symptoms yet including abdominal pain, vaginal discharge or bleeding. She does admit to some slight dysuria which she reports she has had issues with UTIs in the past. Last time that she used antibiotics was at the beginning of April. LMP May 05. Related Data Previous Rx's ?Medication ?Instructions ?Recorded ondansetron 4 mg disintegrating 4 mg PO Q8H 3 days #9 tabs 02/04/22 tablet cefuroxime axetil 250 mg tablet 250 mg PO BID #14 tabs 06/14/24 fluconazole 150 mg tablet 150 mg PO DAILY 1 dose #1 ta b 06/19/24 nitrofurantoin 100 mg PO Q12H 5 days #10 ca ps 07/09/24 monohydrate/macrocrystals 100 mg capsule (Macrobid) cefuroxime axetil 250 mg tablet 250 mg PO BID 7 days # 14 tabs 08/20/24 famotidine 20 mg tablet (Pepcid) 20 mg PO DAILY PRN ab dominal 08/20/24 discomfort #30 tabs ondansetron 4 mg disintegrating 4 mg PO Q8H PRN nausea and 08/20/24 tablet vomiting #20 tabs acetaminophen 500 mg tablet 1,000 mg (2 x 500 mg) PO Q 6H PRN 05/06/25 (Tylenol Extra Strength) fever or pain #20 tabs ibuprofen 400 mg tablet 400 mg PO TID PRN fever or p ain 05/06/25 #30 tabs ondansetron 4 mg disintegrating 4 mg PO Q6-8H PRN naus ea and 05/06/25 tablet vomiting #14 tabs cephalexin 500 mg capsule 500 mg PO Q12H #13 caps 04/25 06/18 fluconazole 100 mg tablet 100 mg PO ONCE vaginal yeast 05/11/25 (Diflucan) infection #1 tab phenazopyridine 200 mg tablet 200 mg PO TID PRN pain # 10 tabs 05/11/25 (Pyridium) fluconazole 150 mg tablet 150 mg PO ONCE 1 dose #1 tab 05/27/25 nitrofurantoin 100 mg PO BID 7 days #14 cap s 05/31/25 monohydrate/macrocrystals 100 mg capsule (Macrobid) Allergies Allergy/AdvReac Type Severity Reaction Status Date / Time No Known Allergies (No Known Allergy Verified 05/31/25 15:39 Allergies*) Review of Systems 2 Review of Systems: Yes all other systems are reviewed and are negative (As per HPI) [facility] Past Medical History Attestation statement: The following information was validated with the patient. Medical History No known health problems Social History Social History Alcohol intake: never Patient Tobacco Use Status: Never used Tobacco Advance Directives: No Advance Directives Information Provided: No Do you have a plan to hurt others: No Plan Physical Exam ED Vital Signs: Vital Signs - 24 hr 05/31/25 15:35 05/31/25 22:35 05/31/25 23:13 Temperature 98.1 F 98.4 F 98.4 F Pulse Rate 85 78 78 Respiratory Rate 16 16 16 Blood Pressure 129/55 L 113/78 113/78 Pulse Oximetry 97 98 98 Oxygen Delivery Method Room Air Room Air Room Air BMI result Body Mass Index 24.7 Constitutional: ?Well-appearing, no acute distress HEENT: ?No lymphadenopathy, neck is supple, trachea midline, PERRLA, EOMI, no nystagmus Chest: ?Equal rise, no crepitus, no deformities Respiratory: ?Lungs are clear to auscultation bilaterally, no wheezes/rales/rhonchi Cardio: ?Regular rate and rhythm, no murmurs rubs or gallops, peripheral pulses strong GI: ?Soft, nondistended, nontender to palpation, positive bowel sounds in all quadrants : Deferred Skin: ?Warm, dry, no rashes Musculoskeletal: ?No deformities, normal tone Neuro: ?Alert and oriented, cranial nerves 2-12 intact, equal strength and sensation in bilateral upper and lower extremities Psych: ?Normal affect, appropriate mood, no visual or auditory hallucinations Course Course Course Narrative: This is an RME performed by Justina Dillon CNP: Additional HPI, ROS, PE not included below will be deferred to primary provider. Patient is a 19-year-old female who presents emergency department for evaluation she is requesting testing as well as STI testing. Admits to most recent intercourse 05/28/2025 but was having intercourse prior to this. LMP 05/05/2025. She was made aware that testing from intercourse if occurred on 05/28/2025 would result as inaccurate testing for today; potentially false negatives. However she states that she still would like to be tested to check for prior infection/ possible from intercourse. Also states that over the past 3 days she has been feeling dizzy having nausea and intermittent frontal headache. Plan: Serum labs, urinalysis, STI testing Medications Administered Discontinued Medications Generic Name Dose Route Start Last Admin Trade Name Freq PRN Reason Stop Dose Admin Nitrofurantoin Macrocrystals 100 mg 05/31/25 22:25 05/31/25 23:11 Nitrofurantoin Monohyd/M-Cryst 100 Mg Capsule PO 05/31/25 22:26 100 mg ONCE ONE Administration Medical Decision Making Medical Decision Making [facility] Narrative: 19-year-old female presenting after unprotected sex 3 days ago. Requesting test. Differential diagnosis includes irregular menstrual cycle, , STD exposure, UTI, among others. She is nontoxic with normal vital signs and reassuring blood work. She is not based on our test done in- house. I discussed with her that she is likely too early in the testing for seeing as how the only unprotected sex she had was 3 days ago. She has only missed her menstrual cycle by less than 24 hours. Encouraged her to check an outpatient test at the drug store in about a week. Medicated with Macrobid for UTI. Discharged in stable condition. Differential Diagnosis Differential Diagnoses: The differential diagnosis associated with the presentation includes Lab Data [facility] Lab Attestation statement: I reviewed the patient's lab results. 05/31/25 15:57 05/31/25 15:57 Labs: Lab Results 05/31/25 05/31/25 Range/Units 15:57 23:07 WBC 7.7 (4.8-10.8) X10*3/uL RBC 4.15 L (4.20-5.50) X10*6/uL Hgb 12.7 (12.0-16.0) g/dl Hct 36.3 L (37.0-47.0) % MCV 87.5 (80.0-98.0) fL MCH 30.6 (27.0-33.0) pg MCHC 35.0 (31.0-35.0) g/dl RDW 13.2 (11.0-16.0) % Plt Count 304 (160-400) X10*3/uL MPV 10.4 (9.4-12.3) fL Immature Gran % (Auto) 0.4 (0.0-0.4) % Neut % (Auto) 60.6 (45-73) % Lymph % (Auto) 24.8 (20-40) % [place] % (Auto) 10.6 (2-11) % Eos % (Auto) 3.0 (0-4) % Baso % (Auto) 0.6 (0-2) % Lymph # (Auto) 1.9 (1.2-4.9) X10*3/uL [place] # (Auto) 0.8 (0.1-1.2) X10*3/uL Eos # (Auto) 0.2 (0.0-0.4) X10*3/uL Baso # (Auto) 0.1 (0.0-0.2) X10*3/uL Abs Immat Gran (auto) 0.03 (0.00-0.03) X10*3/uL Absolute Neuts (auto) 4.7 (2.0-8.3) x10*3/uL Absolute Nucleated RBC 0.000 (0.0-0.012) X10*3/uL Nucleated RBC % (auto) 0.0 (0.0-0.2) /100WBC Sodium 139 (135-145) mmol/L Potassium 3.2 L (3.3-5.1) mmol/L Chloride 110 H (96-108) mmol/L Carbon Dioxide 20 L (22-29) mmol/L Anion Gap 12 (12-20) BUN 6 L (9-16) mg/dL Creatinine 0.61 (0.5-1.4) mg/dL Estim Creat Clear Calc 122.7 Estimated GFR > 60 Random Glucose 85 (60-115) mg/dL Calcium 9.0 (8.4-10.2) mg/dL Total Bilirubin 0.7 (0.0-1.0) mg/dL AST 20 (5-31) U/L ALT 18 (0-31) U/L Alkaline Phosphatase 65 (39-117) U/L Total Protein 7.4 (6.5-8.0) g/dL Albumin 4.5 (3.5-5.0) g/dL TSH 0.74 (0.32-4.0) uIU/mL Urine Color Dark Yellow Urine Appearance Cloudy Urine pH 6.0 (5.0-9.0) Ur Specific [place] >= 1.030 H (1.005-1.025) Urine Protein Trace (Neg-Trace) mg/dL Urine Glucose (UA) Negative (Negative) mg/dL Urine Ketones Trace (Negative) mg/dL Urine Blood Moderate (2+) H (Negative) Urine Nitrite Negative (Negative) Ur Leukocyte Esterase Moderate (2+) H (Negative) Urine RBC 6-10 H (0-2) /HPF Urine WBC 21-50 H (0-5) /HPF Ur Squamous Epith Cells 11-20 (0-2) /HPF Urine Bacteria 2+ (None Seen) Hyaline Casts 3-5 (0-2) /LPF Urine Test NEGATIVE (NEGATIVE) T.pallidum Ab (EIA) Nonreactive (Nonreactive) Chlam trachomat DNA PCR NOT DETECTED (Not Detect.) Influenza Type A (PCR) NEGATIVE (Negative) Influenza Type B (PCR) NEGATIVE (Negative) N.gonorrhoeae DNA (PCR) NOT DETECTED (Not Detect.) RSV RNA Qual (PCR) NEGATIVE (Negative) SARS-CoV-2 RNA (RT-PCR) NEGATIVE (Negative) T. vaginalis (PCR) NOT DETECTED (Not Detect) Bact vaginosis (PCR) NEGATIVE (Negative) C. krusei/glabrata (PCR) NOT DETECTED (Not Detect) Regine group (PCR) NOT DETECTED (Not Detect) Independent Historian Clinical information obtained from an independent historian. History obtained from or confirmed by: Friend Prescription Management I considered prescription management with: Antibiotic Discharge Plan Discharge Clinical Impression: test negative, Unprotected sexual intercourse, Potential exposure to STD, UTI (urinary tract infection) Patient Disposition: Home, Self-Care Instructions: Safe Sex Practices (ED), Urinary Tract Infection in Women (ED) Prescriptions: New nitrofurantoin monohyd/m-cryst [Macrobid] 100 mg capsule 100 mg PO BID 7 Days Qty: 14 0RF Rx Instructions: must administer with a meal/food No Action ondansetron 4 mg tablet,disintegrating 4 mg PO Q8H 3 Days Qty: 9 0RF cefuroxime axetil 250 mg tablet 250 mg PO BID Qty: 14 0RF fluconazole 150 mg tablet 150 mg PO DAILY Qty: 1 0RF Rx Instructions: administer on day 1 of therapy nitrofurantoin monohyd/m-cryst [Macrobid] 100 mg capsule 100 mg PO Q12H 5 Days Qty: 10 0RF Rx Instructions: must administer with a meal/food acetaminophen [Tylenol Extra Strength] 500 mg tablet 1,000 mg PO Q6H PRN (Reason: fever or pain) Qty: 20 0RF ibuprofen 400 mg tablet 400 mg PO TID PRN (Reason: fever or pain) Qty: 30 0RF ondansetron 4 mg tablet,disintegrating 4 mg PO Q6-8H PRN (Reason: nausea and vomiting) Qty: 14 0RF phenazopyridine [Pyridium] 200 mg tablet 200 mg PO TID PRN (Reason: pain) Qty: 10 0RF cephalexin 500 mg capsule 500 mg PO Q12H Qty: 13 0RF fluconazole [Diflucan] 100 mg tablet 100 mg PO ONCE Qty: 1 0RF famotidine [Pepcid] 20 mg tablet 20 mg PO DAILY PRN (Reason: abdominal discomfort) Qty: 30 0RF ondansetron 4 mg tablet,disintegrating 4 mg PO Q8H PRN (Reason: nausea and vomiting) Qty: 20 0RF cefuroxime axetil 250 mg tablet 250 mg PO BID 7 Days Qty: 14 0RF fluconazole 150 mg tablet 150 mg PO ONCE Qty: 1 0RF Rx Instructions: next dose on Wednesday 05/30 Interventions: ED Discharge Assessment Last Done: 05/31/25 23:13 Discharge Date/Time: 05/31/25 23:13 Print Language: Macedonian
--- NOTE | 2025-05-31 15:40 | ECG_ITS ---
Test Reason : patelha Blood Pressure : */* mmHG Vent. Rate : 75 BPM Atrial Rate : 75 BPM P-R Int : 136 ms QRS Dur : 68 ms QT Int : 388 ms P-R-T Axes : 11 26 8 degrees QTcB Int : 433 ms Normal sinus rhythm with sinus arrhythmia Nonspecific T wave abnormality Abnormal ECG When compared with ECG of 09-Jul-2024 01:50, No significant change was found Referred By: Rhonda Dillon Electronically Signed By: Kevin Awad
[2025-05-31 16:11] LABS: MANUAL DIFF FLAG NO
[2025-05-31 16:14] LABS: Hematocrit 36.3 % (37.0-47.0); Hemoglobin 12.7 g/dl (12.0-16.0); Imm Gran Abs Auto 0.03 X10*3/uL (0.00-0.03); Imm Gran Pct Auto 0.4 % (0.0-0.4); Lymphocytes Absolute Auto 1.9 X10*3/uL (1.2-4.9); Mean Corpuscular HGB Conc 35.0 g/dl (31.0-35.0); Mean Corpuscular Hemoglobin 30.6 pg (27.0-33.0); Mean Corpuscular Volume 87.5 fL (80.0-98.0); NRBC Abs Auto 0.000 X10*3/uL (0.0-0.012); NRBC Pct Auto 0.0 /100WBC (0.0-0.2); Platelet Count 304 X10*3/uL (160-400); Red Blood Count 4.15 X10*6/uL (4.20-5.50); White Blood Count 7.7 X10*3/uL (4.8-10.8)
[2025-05-31 16:20] LABS: Appearance Urine Cloudy; Glucose Urine UA Negative (Negative); PH 6.0 (5.0-9.0); Specific Gravity - Urine >= 1.030 (1.005-1.025); UMIC TRIGGER UACC YES
[2025-05-31 16:36] LABS: Alanine Aminotransferase 18 U/L (0-31); Albumin Level 4.5 g/dL (3.5-5.0); Alkaline Phosphatase 65 U/L (39-117); Anion Gap 12 (12-20); Aspartate Amino Transferase 20 U/L (5-31); Blood Urea Nitrogen 6 mg/dL (9-16); Calcium 9.0 mg/dL (8.4-10.2); Carbon Dioxide 20 mmol/L (22-29); Chloride 110 mmol/L (96-108); Creatinine Clr Calc Pharmacy 122.7; Estimated Glomerular Filt Rate > 60; Potassium 3.2 mmol/L (3.3-5.1); Sodium 139 mmol/L (135-145); Total Protein 7.4 g/dL (6.5-8.0)
[2025-05-31 16:48] LABS: UPreg QC Valid YES
[2025-05-31 16:51] LABS: Resp Syncy Virus RNA Qual PCR NEGATIVE (Negative); SARS COV2 PCR INHOUSE NEGATIVE (Negative)
[2025-05-31 17:48] LABS: UACC Culture Trigger YES
[2025-05-31 22:35] VITALS: BP 113/78; PULSE 78; RESP 16; TEMP 36.9; O2SAT 98
[2025-05-31 23:13] VITALS: BP 113/78; PULSE 78; RESP 16; TEMP 36.9; O2SAT 98
[2025-06-01 00:20] LABS: Bacterial Vaginosis PCR NEGATIVE (Negative); Candida Group PCR NOT DETECTED (Not Detect); Candida glab krusei PCR NOT DETECTED (Not Detect); Trichomonas vaginalis PCR NOT DETECTED (Not Detect)
[2025-06-01 02:09] LABS: CT PCR NOT DETECTED (Not Detect.); NG PCR NOT DETECTED (Not Detect.)
[2025-06-01 08:13] LABS: Syphilis Screen Nonreactive (Nonreactive)
== END 2025-05-31 23:13 | disposition home or self-care (01) ==
PROVIDERS: Nurse Practitioner Family; Emergency Provider Emergency Medicine; PCP Pediatrics
DX: N39.0 Urinary tract infection, site not specified (principal); I49.8 Other specified cardiac arrhythmias; Z20.2 Contact with and (suspected) exposure to infections with a predominantly sexual mode of transmission; Z03.818 Encounter for observation for suspected exposure to other biological agents ruled out; Z79.899 Other long term (current) drug therapy
CPT/HCPCS: 36415; 80053; 81001; 81025; 81515; 84443; 85025; 86780; 87086; 87491; 87591; 87637; 93005; 99283; 99284

== ENCOUNTER → 2025-05-31 15:40 | Outpatient (BNV) | payer MEDICAID, SELFPAY | PROVIDERS: Emergency Provider Emergency Medicine; PCP Pediatrics; Visit Provider Internal Medicine Cardiovascular Disease | DX: R94.31 Abnormal electrocardiogram [ECG] [EKG] (principal); Z13.6 Encounter for screening for cardiovascular disorders | CPT/HCPCS: 93010 ==

== ENCOUNTER 2025-06-06 21:04 | Emergency (ER) | payer MEDICAID, SELFPAY ==
[2025-06-06 21:13] VITALS: BP 127/89; PULSE 97; RESP 16; TEMP 36.9; O2SAT 98; BMI 24.7
[2025-06-06 21:46] LABS: Appearance Urine Cloudy; Glucose Urine UA Negative (Negative); PH 6.0 (5.0-9.0); Specific Gravity - Urine >= 1.030 (1.005-1.025); UMIC TRIGGER UACC YES
[2025-06-06 21:58] LABS: UACC Culture Trigger YES
[2025-06-06 22:06] VITALS: BP 130/78; PULSE 78; TEMP 37; O2SAT 99
--- NOTE | 2025-06-06 22:33 | ED.FEMALEGU ---
HPI - Female Genitourinary General Chief complaint: Urogenital-Female Stated complaint: UTI painful Time Seen by Provider: 06/06/25 22:32 Source: patient Mode of arrival: ambulatory Limitations: no limitations History of Present Illness ED Provider: HPI Narrative: Patient has been having dysuria frequency for last 1 week was seen here on 05/27 was prescribed antibiotics which she did not take it as the pharmacy was closed no nausea no vomiting no fever no chills Related Data Previous Rx's ?Medication ?Instructions ?Recorded ondansetron 4 mg disintegrating 4 mg PO Q8H 3 days #9 tabs 02/04/22 tablet cefuroxime axetil 250 mg tablet 250 mg PO BID #14 tabs 06/14/24 fluconazole 150 mg tablet 150 mg PO DAILY 1 dose #1 tab 06/19/24 nitrofurantoin 100 mg PO Q12H 5 days #10 caps 07/09/24 monohydrate/macrocrystals 100 mg capsule (Macrobid) cefuroxime axetil 250 mg tablet 250 mg PO BID 7 days #14 tabs 08/20/24 famotidine 20 mg tablet (Pepcid) 20 mg PO DAILY PRN abdominal 08/20/24 discomfort #30 tabs ondansetron 4 mg disintegrating 4 mg PO Q8H PRN nausea and 08/20/24 tablet vomiting #20 tabs acetaminophen 500 mg tablet 1,000 mg (2 x 500 mg) PO Q6H PRN 05/06/25 (Tylenol Extra Strength) fever or pain #20 tabs ibuprofen 400 mg tablet 400 mg PO TID PRN fever or pain 05/06/25 #30 tabs ondansetron 4 mg disintegrating 4 mg PO Q6-8H PRN nausea and 05/06/25 tablet vomiting #14 tabs cephalexin 500 mg capsule 500 mg PO Q12H #13 caps 05/11/25 fluconazole 100 mg tablet 100 mg PO ONCE vaginal yeast 05/11/25 (Diflucan) infection #1 tab phenazopyridine 200 mg tablet 200 mg PO TID PRN pain #10 tabs 05/11/25 (Pyridium) fluconazole 150 mg tablet 150 mg PO ONCE 1 dose #1 tab 05/27/25 nitrofurantoin 100 mg PO BID 7 days #14 caps 05/31/25 monohydrate/macrocrystals 100 mg capsule (Macrobid) Allergies Allergy/AdvReac Type Severity Reaction Status Date / Time No Known Allergies (No Known Allergy Verified 06/06/25 21:16 Allergies*) Review of Systems Review of Systems: Yes all other systems are reviewed and are negative [facility] Past Medical History Medical History No known health problems Social History Social History Alcohol intake: never Patient Tobacco Use Status: Never used Tobacco Advance Directives: No Advance Directives Information Provided: No Do you have a plan to hurt others: No Plan Physical Exam Vital Signs: Vital Signs: Last Vital Signs Temp 98.6 F 06/06/25 23:05 Pulse 78 06/06/25 23:05 Resp 20 06/06/25 23:05 BP 130/78 06/06/25 23:05 Pulse Ox 99 06/06/25 23:05 O2 Del Method Room Air 06/06/25 23:05 BMI result Body Mass Index 24.7 Appearance: Alert. Oriented X3. No acute distress. Eyes: PERRLA, No Nystagmus ENT: Pharynx normal. Oral Mucosa moist Neck: Normal inspection. Neck supple. CVS: Normal heart rate and rhythm. Pulses normal. Respiratory: No respiratory distress. Equal air entry bilateral, no wheezing/rales/rhonchi Abdomen: Soft and nontender. Bowel sounds are present, no mass palpable, no CVA tenderness Skin: Skin warm and dry. Normal skin color. Normal skin turgor. Extremities: No lower extremity edema. No calf tenderness Neuro: Oriented X 3. No motor deficit. Medications Administered Discontinued Medications Generic Name Dose Route Start Last Admin Trade Name Freq PRN Reason Stop Dose Admin Cefuroxime Axetil 500 mg 06/06/25 22:35 06/06/25 22:41 Cefuroxime Axetil 500 Mg Tablet PO 06/06/25 22:36 500 mg ONCE ONE Administration Medical Decision Making Medical Decision Making [facility] Narrative: Patient with uncomplicated UTI unable to get the prescription feel will give cefuroxime advised to continue her medication as prescribed Lab Data Labs: Lab Results 06/06/25 Range/Units 21:39 Urine Color Yellow Urine Appearance Cloudy Urine pH 6.0 (5.0-9.0) Ur Specific [place] >= 1.030 H (1.005-1.025) Urine Protein 300 (3+) H (Neg-Trace) mg/dL Urine Glucose (UA) Negative (Negative) mg/dL Urine Ketones Trace (Negative) mg/dL Urine Blood Large (3+) H (Negative) Urine Nitrite Negative (Negative) Ur Leukocyte Esterase Moderate (2+) H (Negative) Urine RBC >20 H (0-2) /HPF Urine WBC >50 H (0-5) /HPF Ur Squamous Epith Cells 11-20 (0-2) /HPF Urine Bacteria 4+ (None Seen) Hyaline Casts 3-5 (0-2) /LPF Discharge Plan Discharge Clinical Impression: Urinary tract infection Patient Disposition: Home, Self-Care Instructions: Urinary Tract Infection in Women (DC) Additional Instructions: Drink plenty of fluids Get your medication from pharmacy tomorrow as prescribed for urinary tract infection Follow with your PCP Prescriptions: No Action ondansetron 4 mg tablet,disintegrating 4 mg PO Q8H 3 Days Qty: 9 0RF cefuroxime axetil 250 mg tablet 250 mg PO BID Qty: 14 0RF fluconazole 150 mg tablet 150 mg PO DAILY Qty: 1 0RF Rx Instructions: administer on day 1 of therapy nitrofurantoin monohyd/m-cryst [Macrobid] 100 mg capsule 100 mg PO Q12H 5 Days Qty: 10 0RF Rx Instructions: must administer with a meal/food acetaminophen [Tylenol Extra Strength] 500 mg tablet 1,000 mg PO Q6H PRN (Reason: fever or pain) Qty: 20 0RF ibuprofen 400 mg tablet 400 mg PO TID PRN (Reason: fever or pain) Qty: 30 0RF ondansetron 4 mg tablet,disintegrating 4 mg PO Q6-8H PRN (Reason: nausea and vomiting) Qty: 14 0RF phenazopyridine [Pyridium] 200 mg tablet 200 mg PO TID PRN (Reason: pain) Qty: 10 0RF cephalexin 500 mg capsule 500 mg PO Q12H Qty: 13 0RF fluconazole [Diflucan] 100 mg tablet 100 mg PO ONCE Qty: 1 0RF famotidine [Pepcid] 20 mg tablet 20 mg PO DAILY PRN (Reason: abdominal discomfort) Qty: 30 0RF ondansetron 4 mg tablet,disintegrating 4 mg PO Q8H PRN (Reason: nausea and vomiting) Qty: 20 0RF cefuroxime axetil 250 mg tablet 250 mg PO BID 7 Days Qty: 14 0RF fluconazole 150 mg tablet 150 mg PO ONCE Qty: 1 0RF Rx Instructions: next dose on Wednesday 05/30 nitrofurantoin monohyd/m-cryst [Macrobid] 100 mg capsule 100 mg PO BID 7 Days Qty: 14 0RF Rx Instructions: must administer with a meal/food Stand Alone Forms: Work/School Release Interventions: ED Discharge Assessment Last Done: 06/06/25 23:05 Discharge Date/Time: 06/06/25 23:06 Print Language: [place]
[2025-06-06 23:05] VITALS: BP 130/78; PULSE 78; RESP 20; TEMP 37; O2SAT 99
== END 2025-06-06 23:06 | disposition home or self-care (01) ==
PROVIDERS: Emergency Provider Internal Medicine; PCP Pediatrics
DX: N39.0 Urinary tract infection, site not specified (principal); R30.0 Dysuria; R35.0 Frequency of micturition
CPT/HCPCS: 81001; 87086; 99283

== ENCOUNTER 2025-06-14 16:02 | Outpatient (REF) | payer MEDICAID, SELFPAY ==
--- OUTSIDE RECORDS SUMMARY | 2025-06-14 16:21 | XMS_ITS | Encounter Summary ---
Author Organization [employer] Address [address] [facility] [address] [place] [address] Care Team Providers Care Lighting Engineering Technician Name Role Phone Aleyda Herron MD Primary Care Provider [phone] Kami Pedro Unavailable [phone] Daphne High Unavailable Encounter Details Date Type Department Care Team (Latest Contact Info) Description 06/14/2025 Travel Social History Tobacco Use Types Packs/Day [...] problems with any of the following? Lead [place] or [place];Mold 09/25/2024 Food Insecurity Answer Date [...] as of this encounter Plan of Treatment Upcoming Encounters Date Type Department Care Team (Late st Contact Info) Description 08/20/2025 2:00 PM EDT Office Visit [facility] [address] [place] [id number] Aleyda Herron MD [address] [place] [id number] 09/08/2025 3:00 PM EDT Clinical Support [facility] [address] [place] [id number] documented as of this encounter Visit Diagnoses Not on filedocumented in this encounter Additional Health Concerns Assessment Noted Time PHQ-9 Depression Total Score: 6 04/09/20 25 9:19 AM EDT documented as of this encounter Care Teams Lighting Engineering Technician Relationship Specialty Start Date End Date Aleyda Herron MD [address] [place] [id number] PCP - General Pediatrics 03/30/16 Kami Pedro Registered Nurse 06/07/25 Daphne High 06/07/25 documented as of this encounter
[2025-06-15 01:40] LABS: CT PCR Urine NOT DETECTED (Not Detect.); NG PCR Urine NOT DETECTED (Not Detect.)
[2025-06-15 08:21] LABS: Syphilis Screen Nonreactive (Nonreactive)
[2025-06-15 08:22] LABS: HIV Num 1 0.29 S/CO (0.00-0.99)
== END 2025-06-14 16:03 | disposition home or self-care (01) ==
LOC: HO.HHCL 16:02
PROVIDERS: PCP Pediatrics; Visit Provider Pediatrics
DX: Z11.3 Encounter for screening for infections with a predominantly sexual mode of transmission (principal)
CPT/HCPCS: 36415; 86780; 87086; 87147; 87389; 87491; 87591